=== PATIENT | male | born 1980 | race Caucasian/White ===

== ENCOUNTER 2020-05-15 11:32 | Inpatient (IN) ==
[2020-05-15] MEDS ORDERED: KETOROLAC 30 MG/ML VIAL IV STA (11:49)
--- NOTE | 2020-05-15 11:55 | Emergency Department Note ---
Impression & Plan Pneumothorax, Chest pain ED Provider Note NAME: ELIO [id number] OLGA AGE: 40 SEX: M : 1980 ARRIVES VIA: Walk-In INFORMANT: Patient, ED PROVIDER(S): Johan Bledsoe MD Chief Complaint: Chest pain, shortness of breath HPI: Patient states that his chest pain and shortness of breath began Saturday. The patient does describe it as right-sided. Patient does have a prior history of spontaneous pneumothoraces where the patient did require chest tube placement approximate 6 weeks prior at [place]. The patient denies any recent assaults. The patient believes he may have had a coughing fit on Saturday which may have caused his symptoms. The patient has not taken anything for pain prior to arrival. It is somewhat worse with inspiration. The patient has no prior history of DVT or PE. Patient has no history of heart disease. The patient denies any alcohol or tobacco use. Patient is a former smoker. Patient denies any alcohol or drug use. The patient denies a history of assaults as an inmate. Patient has been incarcerated at [facility] for 5 and half years. ROS: See HPI for pertinent positives and negatives. A total of 10 systems were reviewed and otherwise negative. Past medical history: See below Surgical history: See below Social history: See below Physical Exam: GENERAL: Wearing glasses and a mask. NAD, non-toxic. EYE EXAM: Normal conjunctiva. PERRL, no anisocoria and EOM's grossly intact w/o pain. NECK: Supple, no nuchal rigidity, no adenopathy, non-tender. No signs of m eningismus. LUNGS: Diminished breath sounds over the posterior right chest, no obvious wheezing or rhonchi. HEART: NSR, no MRG. ABDOMEN: Abdomen soft, non-tender, normo-active bowel sounds, no masses, no rebound or guarding. BACK: No CVA TTP. SKIN: No rashes and no bruising. UPPER EXTREMITIES: Upper extremities are grossly normal. LOWER EXTREMITIES: Grossly normal, no edema. Negative Homans' sign bilaterally. NEURO EXAM: A&O x3, cranial nerves II-XII grossly intact, normal speech, moves all 4 extremities on command w/o issue. Differential diagnoses: Reactive airway disease, pneumonia, pneumothorax, COPD, CHF, infections, cardiac ischemia, pulmonary embolism, musculoskeletal, gastrointestinal, as well as other pathologies. Course: Patient was seen and evaluated the bedside. Full history physical exam was performed. EKG: Indication: Shortness of breath, chest pain Normal sinus rhythm, rate of 60, normal intervals, normal axis, no ST changes or T WI. Imaging Studies: Radiology results as stated below per my review in the radiologist's interpretation: XR chest 1V portable HISTORY: 40 years-old Male Chest Pain, h/o spont pnx R side diminished acute atypical chest pain. Follow-up study in a patient with pneumothorax COMPARISON: Chest radiograph 04/05/2020 TECHNIQUE: Portable AP view of the chest FINDINGS: Cardiac silhouette is normal. Interstitial coarsening with suggested emphysema. Biapical bulla are redemonstrated. Lateral right lung base pneumothorax, pleural separation of 5.2 cm. The previously noted apical portion of the pneumothorax is not appreciated. Partial collapse of the medial right lung base. No overt pulmonary edema. Bones of the chest appear grossly intact. IMPRESSION: Moderate right basilar pneumothorax. ACT 112: Negative or not required by law. The above report was generated using voice recognition software. It may contain grammatical, syntax or spelling errors. Electronically signed by: Shadi Espinosa M.D. 05/15/2020 12:08 PM Dictated: 05/15/20 1205 Transcribed: 05/15/[address] chest wo con CT DOSE: 287.00 mGy.cm CLINICAL HISTORY: 40 years-old Male with eval pnx. Follow-up study in a patient with right basilar pneumothorax TECHNIQUE: Multiaxial CT images of the chest were performed without contrast. A dose lowering technique was utilized adhering to the principles of ALARA. COMPARISON: Chest radiograph 05/15/2020 FINDINGS: Unremarkable thyroid. No adenopathy. Trace pericardial effusion. Heart appears normal. No thoracic aortic aneurysm. Small amount of layering pleural fluid level of the right lung base. There is severe bullous upper lung zone prominent centrilobular emphysema. Surgical suture material about the bilateral lung apices. 4 mm fissural nodule of the left midlung. There is a large basilar predominant right-sided pneumothorax with partial right lung collapse. Central airways appear patent. Expansion of the right hemithorax. There is mild leftward midline shift. Mild nonspecific distal esophageal wall thickening. Unremarkable soft tissues. The bones appear intact. No acute fracture. IMPRESSION: 1. Right-sided hydropneumothorax with small amount of layering fluid and large amount of air within the pleural space. This results in expansion of the right hemithorax with mild leftward midline shift, possibly representing developing tension component. 2. Severe emphysema with marked upper lung zone predominant bullous changes. 3. Prior resection changes of the bilateral lung apices. ACT 112: Negative or not required by law. Electronically signed by: Shadi Espinosa M.D. 05/15/2020 2:40 PM Dictated: 05/15/20 1433 Transcribed: 05/15/20 1433 XR chest 1V portable HISTORY: 40 years-old Male repeat for pnx follow-up study in a patient with pneumothorax COMPARISON: Chest CT and chest radiograph studies of same day TECHNIQUE: Portable AP view of the chest FINDINGS: Can't mediastinal and hilar silhouettes are within normal limits. Bones appear grossly intact. Severe bullous emphysema with chronic interstitial coarsening. Chronic resection changes of the bilateral lung apices. There is decreased size of the moderate moderate right-sided pneumothorax, pleural separation at the level of the right lung base now measuring 3.2 cm, previously 5.2. There is no midline shift. Trace amount of right lung base pleural fluid. Mildly improved aeration of the right lung base. IMPRESSION: Moderate right pneumothorax has decreased in size and there is mildly improved aeration of the right lung base. Additionally, there is a decreased amount of leftward midline shift and right hemithorax hyperexpansion. ACT 112: Negative or not required by law. The above report was generated using voice recognition software. It may contain grammatical, syntax or spelling errors. Electronically signed by: Shadi Espinosa M.D. 05/15/2020 3:44 PM Dictated: 05/15/20 1542 Transcribed: 05/15/20 1542 Cardiac monitoring: An order was placed for continuous cardiac monitoring. The monitor shows a rate of 71 with sinus rhythm. MDM: Patient did present with concern for chest pain and shortness of breath with a history of spontaneous pneumothoraces in the past. Patient did have blood work completed along with an EKG, troponin, and chest x-ray. The patient was ordered pain medication as well. Patient does have a right-sided basilar pneumothorax given given his prior history of thoracic surgery and location did not feel that it would be appropriate to place a chest tube at this time given that he does not have a diffuse pneumothorax and concern for possible injury in healthy lung tissue or organs in the upper abdomen. I did initially speak with the on-call hospitalist Dr. Mai who kindly accepted the patient. I also did speak with the primary thoracic surgeon Dr. Liz who had performed the patient's pleurodesis. Given the current management he did recommend some oxygen therapy but not to over and oxygenate given the patient's COPD history. He stated that he would recommend getting a CT of the chest and to evaluate the possibility for transfer at a later date as [facility] currently has so many bed holds that they would not be able to have the patient transferred for an inpatient bed today. Dr. Liz cell phone is at [phone] and did want to be contacted with the CT results if possible. I did speak with Dr. Janeth MD about the possibility of admission given the patient's pneumothorax. He did review the CT results and was concerned about the pneumothorax. Patient CT did show concerning signs for pneumothorax. A repeat chest film was obtained which actually does show improvement. Given the improvement in the patient's chest x-ray with minimal oxygen therapy and the fact that he has a pleurodesis I did speak with the on-call heel sorter Dr. Mcnamara. He is currently in agreement with therapy and recommended some oxygen therapy and obtaining a blood gas and will determine the patient's baseline CO2 status. I did rediscuss that Dr. Mcnamara was comfortable with admitting the patient after reviewing his chest x-ray and CT scans. He also did state that the likelihood of a complete pneumothorax given the history of pleurodesis is very unlikely. The patient was admitted to medicine service under Dr. Fowler with pulmonary c onsult. Critical Care: I have personally spent 120 minutes of critical care time in direct management of this patient. This includes bedside care, interpretation of diagnostic studies, and testing, discussion with consultants, patient, and family members, and other require inpatient management activities. This 120 minutes is in excess of all separately billable procedures. Past Med/Surg History Medical History (Updated 05/15/20 @ 16:52 by Maikol Fowler MD) Anxiety disorder Bipolar 2 disorder Constipation Gastroesophageal reflux HCV (hepatitis C virus) History of migraine History of pneumothorax Thoracostomy tube in place Social History (Updated 05/15/20 @ 11:54 by Johan Bledsoe MD) Smoking Status: Former smoker Tobacco Type: E-cigarettes / Vaping Hx Alcohol Use: No Hx Substance Use: No Feels Safe at Home: Yes Allergies Allergies Allergy/AdvReac Type Severity Reaction Status Date / Time citalopram [From Celexa] AdvReac Unknown Unknown Unverified 05/15/20 12:18 tramadol AdvReac Unknown Unknown Unverified 04/05/20 05:13 Home Meds Home Medications Medication Instructions Recorded Confirmed ciclesonide [Alvesco] 1 puff INHALATION BID 03/15/20 05/15/20 finasteride 5 mg PO QAM 03/15/20 05/15/20 levalbuterol tartrate [Xopenex HFA] 2 inh INHALATION QID PRN 03/15/20 05/15/20 lithium carbonate 1,200 mg PO HS 03/15/20 05/15/20 topiramate 25 mg PO HS 03/15/20 05/15/20 trazodone 100 mg PO HS 03/15/20 05/15/20 Results & Data (ED) Vital Signs Vital Signs - 24 hr 05/15/20 11:36 05/15/20 11:44 05/15/20 11:46 Temperature 37.1 C Temperature Source Oral Pulse Rate 71 59 L 66 Pulse Rate from SpO2 Sensor 59 L 65 Pulse Rhythm Regular Pulse Strength Normal Respiratory Rate 20 Respiratory Effort / Characteristics Non-Labored Spontaneous Respiratory Depth Normal Respiratory Pattern Regular Blood Pressure 167/109 H 171/116 H Blood Pressure Mean 128 132 Blood Pressure Position Sitting Pulse Oximetry 96 97 98 Oxygen Delivery Method Room Air Oxygen Flow Rate Sepsis Recent Fever Within 48 Hours No Sepsis New/Unexplained Change in Mental Status N/A Sepsis Action Taken by Nursing No Action Required Oxygen Flow Rate - Titration Pulse Oximetry Post Tiitration 05/15/20 11:47 05/15/20 11:50 05/15/20 12:00 Temperature Temperature Source Pulse Rate 71 62 Pulse Rate from SpO2 Sensor 70 64 Pulse Rhythm Pulse Strength Respiratory Rate Respiratory Effort / Characteristics Non-Labored Respiratory Depth Respiratory Pattern Blood Pressure 155/103 H Blood Pressure Mean 122 Blood Pressure Position Pulse Oximetry 96 95 Oxygen Delivery Method Oxygen Flow Rate Sepsis Recent Fever Within 48 Hours Sepsis New/Unexplained Change in Mental Status Sepsis Action Taken by Nursing Oxygen Flow Rate - Titration Pulse Oximetry Post Tiitration 05/15/20 12:01 05/15/20 12:10 05/15/20 12:20 Temperature Temperature Source Pulse Rate 66 59 L 70 Pulse Rate from SpO2 Sensor 66 57 L 72 Pulse Rhythm Pulse Strength Respiratory Rate Respiratory Effort / Characteristics Respiratory Depth Respiratory Pattern Blood Pressure Blood Pressure Mean Blood Pressure Position Pulse Oximetry 95 96 97 Oxygen Delivery Method Oxygen Flow Rate Sepsis Recent Fever Within 48 Hours Sepsis New/Unexplained Change in Mental Status Sepsis Action Taken by Nursing Oxygen Flow Rate - Titration Pulse Oximetry Post Tiitration 05/15/20 12:30 05/15/20 12:31 05/15/20 12:40 Temperature Temperature Source Pulse Rate 64 67 67 Pulse Rate from SpO2 Sensor 66 63 68 Pulse Rhythm Pulse Strength Respiratory Rate Respiratory Effort / Characteristics Respiratory Depth Respiratory Pattern Blood Pressure 154/101 H Blood Pressure Mean 120 Blood Pressure Position Pulse Oximetry 98 97 98 Oxygen Delivery Method Oxygen Flow Rate Sepsis Recent Fever Within 48 Hours Sepsis New/Unexplained Change in Mental Status Sepsis Action Taken by Nursing Oxygen Flow Rate - Titration Pulse Oximetry Post Tiitration 05/15/20 12:50 05/15/20 13:00 05/15/20 13:01 Temperature Temperature Source Pulse Rate 69 83 81 Pulse Rate from SpO2 Sensor 71 86 84 Pulse Rhythm Pulse Strength Respiratory Rate Respiratory Effort / Characteristics Respiratory Depth Respiratory Pattern Blood Pressure 172/130 H Blood Pressure Mean 140 Blood Pressure Position Pulse Oximetry 97 95 Oxygen Delivery Method Oxygen Flow Rate Sepsis Recent Fever Within 48 Hours Sepsis New/Unexplained Change in Mental Status Sepsis Action Taken by Nursing Oxygen Flow Rate - Titration Pulse Oximetry Post Tiitration 05/15/20 13:10 05/15/20 13:30 05/15/20 14:21 Temperature Temperature Source Pulse Rate 68 55 L 62 Pulse Rate from SpO2 Sensor 66 56 L 63 Pulse Rhythm Pulse Strength Respiratory Rate 23 Respiratory Effort / Characteristics Respiratory Depth Respiratory Pattern Blood Pressure 148/90 H 143/95 H Blood Pressure Mean 98 103 Blood Pressure Position Pulse Oximetry 97 96 96 Oxygen Delivery Method Oxygen Flow Rate Sepsis Recent Fever Within 48 Hours Sepsis New/Unexplained Change in Mental Status Sepsis Action Taken by Nursing Oxygen Flow Rate - Titration Pulse Oximetry Post Tiitration 05/15/20 14:30 05/15/20 15:00 Temperature Temperature Source Pulse Rate 61 62 Pulse Rate from SpO2 Sensor 63 57 L Pulse Rhythm Pulse Strength Respiratory Rate 16 14 Respiratory Effort / Characteristics Respiratory Depth Respiratory Pattern Blood Pressure 138/89 124/85 Blood Pressure Mean 100 92 Blood Pressure Position Pulse Oximetry 93 95 Oxygen Delivery Method Nasal Cannula Oxygen Flow Rate 2 Sepsis Recent Fever Within 48 Hours Sepsis New/Unexplained Change in Mental Status Sepsis Action Taken by Nursing Oxygen Flow Rate - Titration 2 Pulse Oximetry Post Tiitration 96 Home Medications Current Medication List: was personally reviewed by me Laboratory Data Attestation: I reviewed the patient's lab results. Result diagrams: 05/15/20 11:53 05/15/20 11:53 Lab Results 05/15/20 05/15/20 05/15/20 Range/Units 11:53 11:53 11:53 WBC 8.37 (4.8-10.8) K/uL RBC 4.51 L (4.7-6.1) M/uL Hgb 14.0 (14.0-18.0) g/dL Hct 43.1 (42-52) % MCV 95.6 (80-100) fL MCH 31.0 (25-34) pg MCHC 32.5 (32-36) g/dL RDW Std Deviation 46.8 H (36.4-46.3) fL RDW Coeff of Chang 13.5 (11.5-14.5) % Plt Count 278 (130-400) K/uL MPV 10.7 H (7.4-10.4) fL Immature Gran % (Auto) 0.2 % Neut % (Auto) 58.0 % Lymph % (Auto) 29.6 % Falls % (Auto) 7.8 % Eos % (Auto) 4.2 % Baso % (Auto) 0.2 % Neut # (Auto) 4.85 (1.4-6.5) K/uL Lymph # (Auto) 2.48 (1.2-3.4) K/uL Falls # (Auto) 0.65 H (0.11-0.59) K/uL Eos # (Auto) 0.35 (0-0.5) K/uL Baso # (Auto) 0.02 (0-0.2) K/uL Immature Gran # (Auto) 0.02 (0.00-0.02) K/uL PT 11.4 (9.0-12.0) Seconds INR 1.1 (0.9-1.1) APTT 27.9 (21.0-31.0) Seconds PTT Ratio 1.0 ABG pH (7.35-7.45) ABG pCO2 (35-46) mmHg ABG pO2 (80-95) mmHg ABG HCO3 (19-24) mmol/L ABG O2 Saturation (90-95) % ABG Base Excess (-9-1.8) mEq/L Octavio Test (Pos) VBG pH (7.36-7.41) VBG pCO2 (38-50) mmHg VBG pO2 mmHg VBG HCO3 mmol/L VBG O2 Saturation % VBG Base Excess mEq/L Barometric Pressure mm/Hg Oxygen Given Sodium 139 (136-145) mmol/L Potassium 4.0 (3.5-5.1) mmol/L Chloride 109 H (98-107) mmol/L Carbon Dioxide 26 (21-32) mmol/L Anion Gap 5.0 (3-11) BUN 9 (7-18) mg/dl Creatinine 1.15 (0.6-1.4) mg/dl Est Cr Clr Drug Dosing 88.8 ml/min Est GFR ( Amer) 90.5 Est GFR (Non-Af Amer) 78.1 BUN/Creatinine Ratio 8.2 L (10-20) Glucose 81 (70-99) mg/dl Calcium 9.8 (8.5-10.1) mg/dl Total Bilirubin 0.3 (0.2-1) mg/dl AST 10 L (15-37) U/L ALT 14 (12-78) U/L Alkaline Phosphatase 82 (45-117) U/L Troponin I < 0.015 (0-0.045) ng/ml Total Protein 8.1 (6.4-8.2) gm/dl Albumin 4.3 (3.4-5.0) gm/dl Globulin 3.8 (2.5-4.0) gm/dl Albumin/Globulin Ratio 1.1 (0.9-2) Lipase 316 (73-393) U/L 05/15/20 05/15/20 Range/Units 16:22 16:33 WBC (4.8-10.8) K/uL RBC (4.7-6.1) M/uL Hgb (14.0-18.0) g/dL Hct (42-52) % MCV (80-100) fL MCH (25-34) pg MCHC (32-36) g/dL RDW Std Deviation (36.4-46.3) fL RDW Coeff of Chang (11.5-14.5) % Plt Count (130-400) K/uL MPV (7.4-10.4) fL Immature Gran % (Auto) % Neut % (Auto) % Lymph % (Auto) % Falls % (Auto) % Eos % (Auto) % Baso % (Auto) % Neut # (Auto) (1.4-6.5) K/uL Lymph # (Auto) (1.2-3.4) K/uL Falls # (Auto) (0.11-0.59) K/uL Eos # (Auto) (0-0.5) K/uL Baso # (Auto) (0-0.2) K/uL Immature Gran # (Auto) (0.00-0.02) K/uL PT (9.0-12.0) Seconds INR (0.9-1.1) APTT (21.0-31.0) Seconds PTT Ratio ABG pH 7.41 (7.35-7.45) ABG pCO2 34 L (35-46) mmHg ABG pO2 85 (80-95) mmHg ABG HCO3 21 (19-24) mmol/L ABG O2 Saturation 96.8 H (90-95) % ABG Base Excess -2.7 (-9-1.8) mEq/L Octavio Test Pos (Pos) VBG pH 7.37 (7.36-7.41) VBG pCO2 41 (38-50) mmHg VBG pO2 30 mmHg VBG HCO3 23 mmol/L VBG O2 Saturation < 60.0 % VBG Base Excess -2.1 mEq/L Barometric Pressure 730.0 730.2 mm/Hg Oxygen Given 1.5l Sodium (136-145) mmol/L Potassium (3.5-5.1) mmol/L Chloride (98-107) mmol/L Carbon Dioxide (21-32) mmol/L Anion Gap (3-11) BUN (7-18) mg/dl Creatinine (0.6-1.4) mg/dl Est Cr Clr Drug Dosing ml/min Est GFR ( Amer) Est GFR (Non-Af Amer) BUN/Creatinine Ratio (10-20) Glucose (70-99) mg/dl Calcium (8.5-10.1) mg/dl Total Bilirubin (0.2-1) mg/dl AST (15-37) U/L ALT (12-78) U/L Alkaline Phosphatase (45-117) U/L Troponin I (0-0.045) ng/ml Total Protein (6.4-8.2) gm/dl Albumin (3.4-5.0) gm/dl Globulin (2.5-4.0) gm/dl Albumin/Globulin Ratio (0.9-2) Lipase (73-393) U/L Administered Medications Fentanyl Citrate (Fentanyl Citrate 100 Mcg/2 Ml Vial) 50 mcg IV Q2H PRN PRN Reason: Pain Stop: 05/29/20 16:18 Last Admin: 05/15/20 16:47 Dose: 50 mcg Documented by: [id number] Discontinued Medications Fentanyl Citrate (Fentanyl Citrate 100 Mcg/2 Ml Vial) 50 mcg IV Q1H DEANNA Stop: 05/29/20 13:59 Last Admin: 05/15/20 16:30 Dose: Not Given Documented by: [id number] Admin: 05/15/20 15:00 Dose: Not Given Documented by: [id number] Admin: 05/15/20 14:26 Dose: 50 mcg Documented by: [id number] Sodium Chloride (Nss 1000ml) 1,000 mls @ 999 mls/hr IV .Q1H1M DEANNA Stop: 05/15/20 13:00 Last Infusion: 05/15/20 13:28 Dose: 0 mls/hr Documented by: [id number] Admin: 05/15/20 12:08 Dose: 999 mls/hr Documented by: [id number] Ketorolac Tromethamine (Ketorolac 30 Mg/Ml Vial) 30 mg IV NOW STA Stop: 05/15/20 11:50 Last Admin: 05/15/20 12:08 Dose: 30 mg Documented by: [id number] Discharge Plan Visit Data Chief Complaint: Respiratory Problems Stated Complaint: SPONTANEOUS PNEUMOTHORAX ED Provider: Johan Bledsoe Discharge Problem: Pneumothorax, Chest pain Forms Stand Alone Forms: [facility] [employer] Prescriptions Prescriptions: No Action lithium carbonate 300 mg Tablet Extended Release 1,200 mg PO HS RF: 0 topiramate 25 mg Tablet 25 mg PO HS RF: 0 trazodone 100 mg Tablet 100 mg PO HS RF: 0 finasteride 5 mg Tablet 5 mg PO QAM RF: 0 levalbuterol tartrate [Xopenex HFA] 45 mcg/actuation Hfa Aerosol Inhaler 2 inh INHALATION QID PRN (Reason: Shortness Of Breath) RF: 0 Alvesco 80 mcg/actuation Hfa Aerosol Inhaler 1 puff INHALATION BID RF: 0
[2020-05-15] MEDS ORDERED: SODIUM CHLORIDE 0.9% 1000ML 1,000 ML IV SCH (12:00)
[2020-05-15 12:02] LABS: Basophils # (auto) 0.02 K/uL (0-0.2); Basophils % (auto) 0.2 %; Eosinophils # (auto) 0.35 K/uL (0-0.5); Eosinophils % (auto) 4.2 %; Hematocrit (blood only) 43.1 % (42-52); Immature Granulocytes # (auto) 0.02 K/uL (0.00-0.02); Immature Granulocytes % (auto) 0.2 %; Lymphocytes # (auto) 2.48 K/uL (1.2-3.4); Lymphocytes % (auto) 29.6 %; Mean Corpuscular Hgb Conc 32.5 g/dL (32-36); Mean Corpuscular Volume 95.6 fL (80-100); Mean Platelet Volume 10.7 fL (7.4-10.4); Monocytes # (auto) 0.65 K/uL (0.11-0.59); Monocytes % (auto) 7.8 %; Neutrophils # (auto) 4.85 K/uL (1.4-6.5); Platelet Count 278 K/uL (130-400); RDW Coefficient of Variation 13.5 % (11.5-14.5); RDW Standard Deviation 46.8 fL (36.4-46.3); Red Blood Count 4.51 M/uL (4.7-6.1); White Blood Count 8.37 K/uL (4.8-10.8)
--- NOTE | 2020-05-15 12:09 | XRay Report ---
XR chest 1V portable HISTORY: 40 years-old Male Chest Pain, h/o spont pnx R side diminished acute atypical chest pain. Fo llow-up study in a patient with pneumothorax COMPARISON: Chest radiograph 04/05/2020 TECHNIQUE: Portable AP view of the chest FINDINGS: Cardiac silhouette is normal. Interstitial coarsening with suggested emphysema. Biapical bulla are re demonstrated. Lateral right lung base pneumothorax, pleural separation of 5.2 cm. The previously note d apical portion of the pneumothorax is not appreciated. Partial collapse of the medial right lung ba se. No overt pulmonary edema. Bones of the chest appear grossly intact. IMPRESSION: Moderate right basilar pneumothorax. ACT 112: Negative or not required by law. The above report was generated using voice recognition software. It may contain grammatical, syntax o r spelling errors. Electronically signed by: Shadi Espinosa M.D. 05/15/2020 12:08 PM
[2020-05-15 12:17] LABS: INR 1.1 (0.9-1.1); Partial Thromboplastin Time 27.9 Seconds (21.0-31.0); Prothrombin Time 11.4 Seconds (9.0-12.0)
[2020-05-15 12:22] LABS: Alanine Aminotransferase 14 U/L (12-78); Albumin Level 4.3 gm/dl (3.4-5.0); Aspartate Aminotransferase 10 U/L (15-37); BUN Creatinine Ratio 8.2 (10-20); Blood Urea Nitrogen 9 mg/dl (7-18); Calcium 9.8 mg/dl (8.5-10.1); Carbon Dioxide 26 mmol/L (21-32); Chloride 109 mmol/L (98-107); Creatinine Clr Calc Pharmacy 88.8 ml/min; Est GFR (African American) 90.5; Est GFR (Non-African American) 78.1; Glucose 81 mg/dl (70-99); Lipase 316 U/L (73-393); Sodium 139 mmol/L (136-145)
[2020-05-15 12:27] LABS: Albumin Globulin Ratio 1.1 (0.9-2); Alkaline Phosphatase 82 U/L (45-117); Bilirubin,Total 0.3 mg/dl (0.2-1); Globulin 3.8 gm/dl (2.5-4.0); Total Protein 8.1 gm/dl (6.4-8.2); Troponin I < 0.015 ng/ml (0-0.045)
--- NOTE | 2020-05-15 13:01 | Electrocardiogram Report ---
Test Reason : Blood Pressure : / mmHG Vent. Rate : 060 BPM Atrial Rate : 060 BPM P-R Int : 152 ms QRS Dur : 084 ms QT Int : 432 ms P-R-T Axes : 069 048 058 degrees QTc Int : 432 ms Normal sinus rhythm Normal ECG When compared with ECG of 05-APR-2020 03:56, Vent. rate has decreased BY 38 BPM Confirmed by Manuel Schulte ([id number]) on 05/15/2020 1:00:18 PM Referred By: REFERRED SELF Confirmed By:Manuel Schulte
[2020-05-15] MEDS: fentaNYL citrate 100 MCG/2 ML VIAL IV SCH ×3 (14:26→16:30)
--- NOTE | 2020-05-15 14:42 | CT Scan Report ---
CT chest wo con CT DOSE: 287.00 mGy.cm CLINICAL HISTORY: 40 years-old Male with eval pnx. Follow-up study in a patient with right basilar pneumothorax TECHNIQUE: Multiaxial CT images of the chest were performed without contrast. A dose lowering techni que was utilized adhering to the principles of ALARA. COMPARISON: Chest radiograph 05/15/2020 FINDINGS: Unremarkable thyroid. No adenopathy. Trace pericardial effusion. Heart appears normal. No t horacic aortic aneurysm. Small amount of layering pleural fluid level of the right lung base. There i s severe bullous upper lung zone prominent centrilobular emphysema. Surgical suture material about th e bilateral lung apices. 4 mm fissural nodule of the left midlung. There is a large basilar predomina nt right-sided pneumothorax with partial right lung collapse. Central airways appear patent. Expansio n of the right hemithorax. There is mild leftward midline shift. Mild nonspecific distal esophageal wall thickening. Unremarkable soft tissues. The bones appear intac t. No acute fracture. IMPRESSION: 1. Right-sided hydropneumothorax with small amount of layering fluid and large amount of air within t he pleural space. This results in expansion of the right hemithorax with mild leftward midline shift, possibly representing developing tension component. 2. Severe emphysema with marked upper lung zone predominant bullous changes. 3. Prior resection changes of the bilateral lung apices. ACT 112: Negative or not required by law. Electronically signed by: Shadi Espinosa M.D. 05/15/2020 2:40 PM
[2020-05-15] MEDS ORDERED: LIDOCAINE/EPINEPHRINE 1% 20 ML VIAL INFIL ONE (15:35)
--- NOTE | 2020-05-15 15:46 | XRay Report ---
XR chest 1V portable HISTORY: 40 years-old Male repeat for pnx follow-up study in a patient with pneumothorax COMPARISON: Chest CT and chest radiograph studies of same day TECHNIQUE: Portable AP view of the chest FINDINGS: Can't mediastinal and hilar silhouettes are within normal limits. Bones appear grossly intact. Severe bullous emphysema with chronic interstitial coarsening. Chronic resection changes of the bilateral l abisai apices. There is decreased size of the moderate moderate right-sided pneumothorax, pleural separa tion at the level of the right lung base now measuring 3.2 cm, previously 5.2. There is no midline sh ift. Trace amount of right lung base pleural fluid. Mildly improved aeration of the right lung base. IMPRESSION: Moderate right pneumothorax has decreased in size and there is mildly improved aeration o f the right lung base. Additionally, there is a decreased amount of leftward midline shift and right hemithorax hyperexpansion. ACT 112: Negative or not required by law. The above report was generated using voice recognition software. It may contain grammatical, syntax o r spelling errors. Electronically signed by: Shadi Espinosa M.D. 05/15/2020 3:44 PM
--- NOTE | 2020-05-15 16:25 | Pulmonary Consultation ---
Date of Consultation May 15, 2020 Assessment & Plan (1) Loculated pneumothorax of lateral aspect of right lung: CT chest 05/15/2020 personally reviewed: Severe's centrilobular and paraseptal emphysema, bullous disease appreciated bilaterally, multiple surgical shwetha appreciated in apices of bilateral lungs more on the right side. Right lower loculated hydro-pneumothorax appreciated with minimal mediastinal shift. No mediastinal lymphadenopathy. Patient had a chest x-ray done an hour after the CT chest. And there is significant decrease in size of the right lower pneumothorax. Patient is only on nasal cannula currently. --Loculated right-sided hydropneumothorax Secondary because of underlying severe bullous disease as well as centrilobular and paraseptal emphysema Patient has had previous bullectomy in the past evident on the CAT scan Dr. Bledsoe from the ED gave me a call regarding patient. Patient is currently on nasal cannula and there is improvement in pneumothorax size. Patient is hemodynamically stable Patient will definitely need CT surgery. [facility] had been contacted by the ED who apparently did previous pleurodesis. They do not have beds right now and liekly will be able to transfer tomorrow. Patient seem to have partial pleurodesis of the right lung leading to loculated pneumothorax of the lower aspect. Likelihood of totally collapsing of the right lung would be unlikely. We will keep the patient 100% nonrebreather to see if we can decrease the size of pneumothorax. Patient does have severe COPD and chronic hypercapnia will be kept in mind while using the nonrebreather. --Severe COPD with emphysema Continue with Anoro and Arnuity. Trelegy inhaler as an outpatient. Alpha-1 antitrypsin deficiency if never done in the past should be thought of given the patient is only 40 years old Plan: ABG 7.41/ on 1.5 L Keep patient on 40-50% FiO2. Antitussive medications. try to minimize any maneuvers which would increase intrathoracic pressure. Avoid positive pressure ventilation including high flow and BiPAP Serial chest x-rays If there is any clinical worsening in symptoms or signs of pneumothorax , will need chest tube placed in. Please note the above document was generated using voice recognition software. It may contain grammatical, syntax or spelling errors.Any formal questions or concerns about the content, text or information contained within the body of this dictation should be directly addressed to the provider for clarification. (2) COPD with emphysema: (3) Lung bullae: History of Present Illness History of Present Illness 40-year-old prisoner with history of COPD, multiple episodes of spontaneous pneumothoraces in the past. He was recently at [facility] and of March-early April for which he had right thoracotomy and bullectomy along with pleurodesis. Patient has had a total of 3 spontaneous pneumothoraces on the right side. And 1 spontaneous pneumothorax on the left side which was in 2007 s/p surgery. Patient presented to the ED with complaints of sharp right-sided chest pain and progressive worsening of shortness of breath. This has been going on since 1 to 2 days. Denies any history of trauma. No hemoptysis. No fever or chills. No nausea or vomiting. No dizziness, no headache. No dysuria or diarrhea. Denies any headache. Social history: 40 pack years. Has been doing e-cigarettes. Patient has been heroin, marijuana as well as cocaine snorting in the past on asking if he has anything else he said he has been everything possible. Quit everything in February 2000 Allergies Allergy/AdvReac Type Severity Reaction Status Date / Time citalopram [From Celexa] AdvReac Unknown Unknown Unverified 05/15/20 12:18 tramadol AdvReac Unknown Unknown Unverified 04/05/20 05:13 Home Medications Home Medications Medication Instructions Recorded Confirmed Type ciclesonide [Alvesco] 1 puff INHALATION BID 03/15/20 05/15/20 History finasteride 5 mg PO QAM 03/15/20 05/15/20 History levalbuterol tartrate [Xopenex HFA] 2 inh INHALATION QID PRN 03/15/20 05/15/20 History lithium carbonate 1,200 mg PO HS 03/15/20 05/15/20 History topiramate 25 mg PO HS 03/15/20 05/15/20 History trazodone 100 mg PO HS 03/15/20 05/15/20 History Patient History Medical History (Updated 05/16/20 @ 07:35 by Maikol Fowler MD) Anxiety disorder Bipolar 2 disorder Constipation Gastroesophageal reflux HCV (hepatitis C virus) History of migraine History of pneumothorax Thoracostomy tube in place Surgical History (Updated 05/15/20 @ 17:48 by Maikol Fowler MD) History of pneumonectomy 04/11/2020 right thoracotomy, bullaectomy and pleurodesis ([facility]) Social History (Updated 05/15/20 @ 17:49 by Maikol Fowler MD) Smoking Status: Unknown if ever smoked Tobacco Type: E-cigarettes / Vaping Age Quit Using Tobacco: 39; packs per day: 1.5; Years Smoked: 20; Hx Alcohol Use: No Hx Substance Use: No Preferred Language: Stateless Communication Ability: Effective Orchestra Director Required: No Beliefs That Will Affect Care: None Current Living Situation: Other Current Living Situation Comment: inmate Other Information That Helps Us Care for You: No Feels Safe at Home: Yes Safety Concerns: Feels Safe At This Time Assistive Devices: None Review of Systems Review of Systems: All systems reviewed & are unremarkable except as noted in HPI & below Physical Exam Physical Exam: Constitutional: No acute distress HEENT: EOMI, PERRLA Respiratory system: Decreased air entry bilaterally, no wheeze, no rhonchi, mild crackles left lower lobe, surgical scar appreciated on the lateral aspect of the right chest CVS: S1-S2 positive, no murmurs or gallops Abdomen: Soft, nontender, nondistended, positive bowel sounds x4 Extremities: +2 pulses bilaterally radialis/ dorsalis pedis, no cyanosis, no edema Neuro: Awake alert oriented x3 Psych: Normal mood and affect G/U: No Santizo Skin: no rashes, warm and dry Lymphatic: no cervical or axillary lymphadenopathy Results & Data Results & Data ([facility]) Vital Signs (Past 12 Hours) Vital Signs Temp Pulse Resp BP Pulse Ox 05/15/20 15:00 62 14 124/85 95 05/15/20 14:30 61 16 138/89 93 05/15/20 14:21 62 23 143/95 H 96 05/15/20 13:30 55 L 148/90 H 96 05/15/20 13:10 68 97 05/15/20 13:01 81 05/15/20 13:00 83 172/130 H 95 05/15/20 12:50 69 97 05/15/20 12:40 67 98 05/15/20 12:31 67 97 05/15/20 12:30 64 154/101 H 98 05/15/20 12:20 70 97 05/15/20 12:10 59 L 96 05/15/20 12:01 66 95 05/15/20 12:00 62 155/103 H 95 05/15/20 11:50 71 96 05/15/20 11:46 66 98 05/15/20 11:44 59 L 171/116 H 97 05/15/20 11:36 37.1 C 71 20 167/109 H 96 05/15/20 11:53 05/15/20 11:53 PG Care Time/CCT Total # of Minutes Spent Total Time Spent with Patient: Total time spent is greater than 50% in coordination of care (as documented) at patient's floor/unit and/or counseling patient: Coding Level of Care Code 46192 Initial Inpt Care Lvl 3 Diagnoses Loculated pneumothorax of lateral aspect of right lung J93.83 COPD with emphysema J43.9 Lung bullae J43.9
--- NOTE | 2020-05-15 16:26 | History & Physical Report ---
Date of Service May 15, 2020 Assessment & Plan (1) Loculated pneumothorax of lateral aspect of right lung: ER physician discussed with Dr Liz [facility] who will review images and will need to be contacted tomorrow for possible transfer to [facility]. CXR fortunately spontaneously shows improvement. ABG with no CO2 retention. Start patient on 100% Non-rebreather. (2) Lung bullae: Definitive treatment with thoracic surgery. (3) COPD with emphysema: Severe emphysema noted on CT. Only taking Alvesco 1 puff twice daily prior to admission. Will switch to LAMA/LABA/ICS for ongoing treatment. Will need follow up with pulmonology as outpatient - previous alpha-1 antitrypsin testing performed at [facility] - 76 mg/dL (just below normal range. (4) History of migraine: Continue topiramate 25mg PO HS (5) Bipolar 2 disorder: Continue lithium 1200mg PO HS, level with AM labs. Trazodone 100mg PO HS Admission and Anticipated Discharge Date Admission Date: 05/15/2020 History of Present Illness Primary Care Provider: [facility] Enma Toussaint is a 40 year old male with recurrent spontaneous pneumothoraces who presents to the ER from [facility] due to sudden onset right sided chest pain and progressive worsening shortness of breath that started 2 days ago while coughing. He reports initially hearing a pop in his right lung with a sharp pleuritic chest pain. Severity 9/10 at worst, currently 6/10. Denies any trauma. Patient felt no surgical emphysema. No breath sounds could be heard on the right side by the [facility] healthcare provider today but was sent to the ER for further evaluation to assess for pneumothorax. The patient denies any further coughing, hemoptysis, fever, chills, nausea, vomiting, palpitations, diaphoresis, nasal congestion, headache, dizziness, weakness or fatigue. Significant history of recurrent spontaneous pneumothoraces (x3 in the last 2 months), x1 on left 20 years previously: March 15 - large right-sided pneumothorax after straining bowel movement causing collapsed right lung with chest tube placed in ER. Transferred to [facility] 03/15-03/20. Chest tube removed 03/[address] surgery follow up. April 05 - right sided pneumothorax associated with coughing episode with chest tube placed. [facility] 04/05/-04/16, 04/11 -right thoracotomy bullaectomy and pleurodesis. Right basal segment bronchial lavage showed numerous pulmonary macrophages, respiratory epithelium, mucoid exudate and many acute inflammatory cells. No evidence malignancy. 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 Todays episode as above He reports never being seen by special investigation unit investigator outside of a hospital setting however initially [facility] visit did note "complete pulmonary workup". Most recently he was admitted at [facility] from April 05 to April 16, 2020 for similar presentation. On that admission he underwent paracentesis. Chest tube was removed on 04/14 and follow-up chest x-ray the following day showed no pneumothorax at that time. The patient is a former smoker. Quit February 2019. 1-2 packs/day for 20 years. i e. 30 pack-year history. Since July he has been smoking e-cigarettes in the [facility] but quit after his first pneumothorax at the beginning of March. In the ER chest x-ray showed right basilar pneumothorax. ER physician Dr. Bledsoe discussed with his thoracic surgeon at [facility] (Dr Liz) who would have excepted him at [facility] however there are no beds currently available. Requested CT without contrast and he will review images tomorrow for ongoing advice. Case discussed with Dr. Mcnamara by myself and Dr Bledsoe and after repeat CXR showed significant improvement on 2L O2 only the patient will be admitted here to PCU. No need for emergent chest tube at the current time as he appears to be improving. Allergies Allergy/AdvReac Type Severity Reaction Status Date / Time citalopram [From Celexa] AdvReac Unknown Unknown Unverified 05/15/20 12:18 tramadol AdvReac Unknown Unknown Unverified 04/05/20 05:13 Home Medications Home Medications Medication Instructions Recorded Confirmed Type ciclesonide [Alvesco] 1 puff INHALATION BID 03/15/20 05/15/20 History finasteride 5 mg PO QAM 03/15/20 05/15/20 History levalbuterol tartrate [Xopenex HFA] 2 inh INHALATION QID PRN 03/15/20 05/15/20 History lithium carbonate 1,200 mg PO HS 03/15/20 05/15/20 History topiramate 25 mg PO HS 03/15/20 05/15/20 History trazodone 100 mg PO HS 03/15/20 05/15/20 History Past Med/Surg History Medical History (Updated 05/16/20 @ 07:35 by Maikol Fowler MD) Anxiety disorder Bipolar 2 disorder Constipation Gastroesophageal reflux HCV (hepatitis C virus) History of migraine History of pneumothorax Thoracostomy tube in place Surgical History (Updated 05/15/20 @ 17:48 by Maikol Fowler MD) History of pneumonectomy 04/11/2020 right thoracotomy, bullaectomy and pleurodesis ([facility]) Social History (Updated 05/15/20 @ 17:49 by Maikol Fowler MD) Smoking Status: Unknown if ever smoked Tobacco Type: E-cigarettes / Vaping Age Quit Using Tobacco: 39; packs per day: 1.5; Years Smoked: 20; Hx Alcohol Use: No Hx Substance Use: No Preferred Language: Nicaraguan Communication Ability: Effective Screwdown Operator Required: No Beliefs That Will Affect Care: None Current Living Situation: Other Current Living Situation Comment: inmate Other Information That Helps Us Care for You: No Feels Safe at Home: Yes Safety Concerns: Feels Safe At This Time Assistive Devices: Oxygen - Continuous Review of Systems Review of Systems: All systems reviewed & are unremarkable except as noted in HPI & below Physical Exam Constitutional: well developed and well nourished; no acute distress Eyes: + anicteric sclerae; normal pupil size ENMT: external ear and nose normal, oropharynx normal Respiratory: normal respiratory effort and able to speak in complete sentences; no respiratory distress, no labored breathing, no retractions, does not use accessory muscles and no cough Auscultation: + breath sounds absent (Right lateral wall) and + crackles (few around absent area); no wheezes Cardiovascular: Rate/Rhythm: regular rate and regular rhythm Heart Sounds: no murmur Chest (Breasts): Chest: normal inspection of chest (Scarring well healed from prior chest tubes and bullaectomy, no surgical em) Gastrointestinal (Abdomen): normal bowel sounds, soft, nontender, no hepatosplenomegaly Musculoskeletal: no cyanosis or clubbing, extremities motor strength 5/5 Skin: no rashes, warm and dry Neurologic: moves all extremities and awake; not confused Psychiatric: A+Ox3, euthymic affect Genitourinary: no CVA tenderness Results & Data Results & Data ([facility]) Vital Signs (Past 12 Hours) Vital Signs Temp Pulse Resp BP Pulse Ox 05/15/20 15:00 62 14 124/85 95 05/15/20 14:30 61 16 138/89 93 05/15/20 14:21 62 23 143/95 H 96 05/15/20 13:30 55 L 148/90 H 96 05/15/20 13:10 68 97 05/15/20 13:01 81 05/15/20 13:00 83 172/130 H 95 05/15/20 12:50 69 97 05/15/20 12:40 67 98 05/15/20 12:31 67 97 05/15/20 12:30 64 154/101 H 98 05/15/20 12:20 70 97 05/15/20 12:10 59 L 96 05/15/20 12:01 66 95 05/15/20 12:00 62 155/103 H 95 05/15/20 11:50 71 96 05/15/20 11:46 66 98 05/15/20 11:44 59 L 171/116 H 97 05/15/20 11:36 37.1 C 71 20 167/109 H 96 Diagnostic Findings XR chest 1V portable IMPRESSION: Moderate right basilar pneumothorax. CT chest wo con IMPRESSION: 1. Right-sided hydropneumothorax with small amount of layering fluid and large amount of air within the pleural space. This results in expansion of the right hemithorax with mild leftward midline shift, possibly representing developing tension component. 2. Severe emphysema with marked upper lung zone predominant bullous changes. 3. Prior resection changes of the bilateral lung apices. ECG Indication: SOB/dyspnea Rate (beats per minute): 60 Rhythm: normal sinus Findings: no acute ischemic change Comparison ECG Date: from (April 05, 2020) Change: no significant change Code Status & VTE Plan Code Status Full VTE Prophylaxis Plan VTE Prophylaxis will be ordered: No PG Care Time/CCT Total # of Minutes Spent Total Time Spent with Patient: Total time spent is greater than 50% in coordination of care (as documented) at patient's floor/unit and/or counseling patient: Coding Level of Care Code 97228 Initial Inpt Care Lvl 3 Diagnoses Loculated pneumothorax of lateral aspect of right lung J93.83 Lung bullae J43.9 COPD with emphysema J43.9 History of migraine Z86.69 Bipolar 2 disorder F31.81
[2020-05-15 16:34] LABS: Base Excess VBG -2.1 mEq/L; HCO3 VBG 23 mmol/L; Oxygen Saturation VBG < 60.0 %; PCO2 VBG 41 mmHg (38-50); PO2 VBG 30 mmHg; pH VBG 7.37 (7.36-7.41)
[2020-05-15 16:44] LABS: Base Excess ABG -2.7 mEq/L (-9-1.8); HCO3 ABG 21 mmol/L (19-24); Oxygen Saturation ABG 96.8 % (90-95); PCO2 ABG 34 mmHg (35-46); PO2 ABG 85 mmHg (80-95); pH ABG 7.41 (7.35-7.45)
[2020-05-15 16:45] LABS: Allen Test Pos (Pos)
[2020-05-15] MEDS: fentaNYL citrate 100 MCG/2 ML VIAL IV PRN ×3 (16:47→21:26)
--- NOTE | 2020-05-15 16:51 | XRay Report ---
XR chest 1V portable HISTORY: 40 years-old Male f/u Pneumo follow-up study in a patient with pneumothorax COMPARISON: Chest radiograph of same day at 3:33 PM, chest CT of same day. TECHNIQUE: Portable AP view of the chest FINDINGS: The cardiomediastinal and hilar silhouettes are within normal limits. Bones appear grossly intact. Se jun bullous emphysema with chronic interstitial coarsening. Chronic resection changes of the bilater al lung apices. No midline shift. Right basilar pneumothorax is unchanged from comparison, pleural se paration of 3.2 cm. Trace right lung base pleural fluid is better seen on comparison chest CT. IMPRESSION: Unchanged right basilar pneumothorax. ACT 112: Negative or not required by law. The above report was generated using voice recognition software. It may contain grammatical, syntax o r spelling errors. Electronically signed by: Shadi Espinosa M.D. 05/15/2020 4:50 PM
[2020-05-15] MEDS: UMECLIDINIUM/VILANTEROL 62.5/25MCG 7 PUFFS/INHALER INH SCH (20:05)
[2020-05-15] MEDS: TOPIRAMATE 25 MG TAB PO SCH (20:56)
[2020-05-15] MEDS: traZODone HCL 100 MG TAB PO SCH (20:57)
[2020-05-15] MEDS: LITHIUM CARBONATE SLOW REL 300 MG TAB PO SCH (20:57)
[2020-05-16] MEDS: fentaNYL citrate 100 MCG/2 ML VIAL IV PRN ×7 (00:54→20:26)
[2020-05-16 07:41] LABS: Basophils # (auto) 0.02 K/uL (0-0.2); Basophils % (auto) 0.2 %; Eosinophils # (auto) 0.39 K/uL (0-0.5); Eosinophils % (auto) 4.8 %; Hematocrit (blood only) 40.5 % (42-52); Hemoglobin 13.1 g/dL (14.0-18.0); Immature Granulocytes # (auto) 0.02 K/uL (0.00-0.02); Immature Granulocytes % (auto) 0.2 %; Lymphocytes # (auto) 2.08 K/uL (1.2-3.4); Lymphocytes % (auto) 25.6 %; Mean Corpuscular Hemoglobin 30.5 pg (25-34); Mean Corpuscular Hgb Conc 32.3 g/dL (32-36); Mean Corpuscular Volume 94.4 fL (80-100); Mean Platelet Volume 10.4 fL (7.4-10.4); Monocytes # (auto) 0.65 K/uL (0.11-0.59); Neutrophils # (auto) 4.95 K/uL (1.4-6.5); Neutrophils % (auto) 61.2 %; Platelet Count 238 K/uL (130-400); RDW Coefficient of Variation 13.3 % (11.5-14.5); Red Blood Count 4.29 M/uL (4.7-6.1); White Blood Count 8.11 K/uL (4.8-10.8)
[2020-05-16] MEDS: FLUTICASONE FUROATE 100MCG 14 PUFFS/INHALER INH SCH (07:51)
[2020-05-16] MEDS: FINASTERIDE 5 MG TAB PO SCH (07:51)
[2020-05-16] MEDS: UMECLIDINIUM/VILANTEROL 62.5/25MCG 7 PUFFS/INHALER INH SCH (07:51)
--- NOTE | 2020-05-16 08:23 | XRay Report ---
XR chest 1V portable HISTORY: 40 years-old Male f/u pneumo follow up study in a patient with pneumothorax COMPARISON: Chest radiograph 05/15/2020 at 4:39 PM TECHNIQUE: Portable AP view of the chest FINDINGS: Cardiomediastinal and hilar silhouettes are within normal limits. Unchanged right-sided pneumothorax with lateral basilar component measuring 3.1 cm. Severe bullous emphysema with chronic interstitial c oarsening. Postoperative changes of the lung apices. Bones appear grossly intact. IMPRESSION: Unchanged moderate right pneumothorax. ACT 112: Negative or not required by law. The above report was generated using voice recognition software. It may contain grammatical, syntax o r spelling errors. Electronically signed by: Shadi Espinosa M.D. 05/16/2020 8:22 AM
[2020-05-16 08:27] LABS: BUN Creatinine Ratio 10.4 (10-20); Creatinine Clr Calc Pharmacy 103.8 ml/min; Est GFR (African American) 111.1; Est GFR (Non-African American) 95.9
[2020-05-16] MEDS ORDERED: FLUTICASONE FUROATE 100MCG 14 PUFFS/INHALER INH SCH (09:00)
[2020-05-16] MEDS: BENZONATATE 100 MG CAPSULE PO SCH ×3 (10:08→21:19)
--- NOTE | 2020-05-16 11:46 | Pulmonology Progress Note ---
Date of Service May 16, 2020 Assessment & Plan (1) Loculated pneumothorax of lateral aspect of right lung: CT chest 05/15/2020 personally reviewed: Severe's centrilobular and paraseptal em physema, bullous disease appreciated bilaterally, multiple surgical shwetha appreciated in apices of bilateral lungs more on the right side. Right lower loculated hydro-pneumothorax appreciated with minimal mediastinal shift. No mediastinal lymphadenopathy. Patient had a chest x-ray done an hour after the CT chest. And there is significant decrease in size of the right lower pneumothorax. Patient is only on nasal cannula currently. --Loculated right-sided hydropneumothorax Secondary because of underlying severe bullous disease as well as centrilobular and paraseptal emphysema Patient has had previous bullectomy in the past evident on the CAT scan Patient seem to have partial pleurodesis of the right lung leading to loculated pneumothorax of the lower aspect. Likelihood of totally collapsing of the right lung would be unlikely. We will keep the patient 100% nonrebreather to see if we can decrease the size of pneumothorax. Patient does have severe COPD and chronic hypercapnia will be kept in mind while using the nonrebreather. --Severe COPD with emphysema Continue with Anoro and Arnuity Alpha-1 antitrypsin deficiency if never done in the past should be thought of given the patient is only 40 years old Plan: Chest x-ray from today does not show any change in size of the right lower loculated pneumothorax compared to yesterday. Keep patient on nonrebreather.. Antitussive medications. try to minimize any maneuvers which would increase intrathoracic pressure. Avoid positive pressure ventilation including high flow and BiPAP If there is any clinical worsening in symptoms or signs of pneumothorax , will need chest tube placed in. Please note the above document was generated using voice recognition software. It may contain grammatical, syntax or spelling errors.Any formal questions or concerns about the content, text or information contained within the body of this dictation should be directly addressed to the provider for clarification. (2) COPD with emphysema: (3) Lung bullae: Admission and Anticipated Discharge Date Admission Date: May 15, 2020 Subjective Patient seen and examined at bedside. No acute distress, no adverse events overnight. At the time of examination assisted guards were present in the room. Patient still complains of pain on the right side of the chest which is alleviated with pain medications. Denies any significant shortness of breath. No dizziness, no headache, no nausea or vomiting. Review of Systems Review of Systems: All systems reviewed & are unremarkable except as noted in Subjective Physical Exam Physical Exam: Constitutional: No acute distress HEENT: EOMI, PERRLA Respiratory system: Decreased air entry bilaterally, no wheeze, no rhonchi, mild crackles appreciated on the left side, positive lateral chest scar CVS: S1-S2 positive, no murmurs or gallops Abdomen: Soft, nontender, nondistended, positive bowel sounds x4 Extremities: +2 pulses bilaterally radialis/ dorsalis pedis, no cyanosis, no edema, tattoos all over the body Neuro: Awake alert oriented x3 Psych: Normal mood and affect G/U: No Santizo Skin: no rashes, warm and dry Lymphatic: no cervical or axillary lymphadenopathy Results & Data Results & Data ([facility]) Vital Signs (Past 12 Hours) Vital Signs Temp Pulse Resp BP Pulse Ox 05/16/20 11:16 36.6 C 67 18 133/90 99 05/16/20 07:29 36.5 C 65 17 119/89 100 05/16/20 02:38 36.6 C 68 16 137/87 97 05/16/20 07:26 05/16/20 07:26 PG Care Time/CCT Total # of Minutes Spent Total Time Spent with Patient: Total time spent is greater than 50% in coordination of care (as documented) at patient's floor/unit and/or counseling patient: Coding Level of Care Code 24596 Subseq Hosp Care Lvl 3 Diagnoses Loculated pneumothorax of lateral aspect of right lung J93.83 COPD with emphysema J43.9 Lung bullae J43.9
--- NOTE | 2020-05-16 13:22 | Hospitalist Progress Note ---
Date of Service May 16, 2020 Assessment & Plan Admission and Anticipated Discharge Date Admission Date: May 15, 2020 Pt is a 40 y/o male with h/o recuurent spontaenous pneumothoraces who presented with chest pain, shortness of breath and cough. CXR showed right basilar pneumothorax. (1) Loculated pneumothorax of right lung: Patient currently on 6L O2 delivered through nasal cannula. Breathing improved as such Last CXR this morning, shows unchanged right basilar pneuomothorax Hospitalist team contacted Dr Liz [facility] about possible transfer to [facility]. Awaiting transfer possibly this PM (2) Lung bullae: Definitive treatment with thoracic surgery - Transfer to [facility] (3) COPD with emphysema: Severe emphysema noted on CT. Only taking Alvesco 1 puff twice daily prior to admission. Follow up with pulmonology as outpatient - previous alpha-1 antitrypsin testing performed at [facility] - 76 mg/dL (just below normal range. (4) History of migraine: Continue topiramate 25mg PO HS (5) Bipolar 2 disorder: Continue lithium 1200mg PO HS, level with AM labs. Trazodone 100mg PO HS FEN/GI - Regular diet DVT prophylaxis - SCD Code - Full code Dispo - awaiting transfer to [facility] Supervising Physician Co-Signing Physician Notes Attending attestation Pt seen and examined in concert with Dr. Natarajan and Std Dr. Ramirez. In agreement with the documented findings as noted in the documentation with any exceptions or additions as noted here. 40 y/o male h/o recurrent pneumothorax, COPD w/ emphysema presenting with right pneumothorax Still having considerable positional discomfort and shortness of breath, mostly while lying on the left side but tolerating RA well in general. Appetite is stable. On examination, S1/S2 nl RRR no MCG. Abd NT/ND BS+ve. Decreased breathsounds throughout the right side, predominantly the upper lobe, compared to the left. Pneumothorax, right, loculated - followed extensively by CT surgery @ [facility] for this. Pulmonlogy consultation agrees that transfer would be appropriate in this case. Accepting as noted and pending txf. Continue O2 per protocol. COPD with emphysema - continue umeclidinium/vilanterol and fluticasone as scheduled. Bipolar 2 - previous h/o sertraline use with 150mg qHS as well as risperidone 8mg qHS. No dose last night. Would resume qHS tonight or on transfer. Else see resident documentation as noted. Marisa Zuñiga is a 40 y/o male with a h/o recurrent spontaneous pneumothoraces, who presented with chest pain, shortness of breath and cough. He has had 4 pneumothoraces in the past 2 months. Today, he notes that his symptoms are improved. Pain meds bring his pain from 8 to 4. Cough is also improved, and he is breathing comfortably on 6L O2 delivered through nasal cannula. He does also state that he "feels like he's drowning" when he lays on his left side. Review of Systems Constitutional: No fevers, chills. Good appetite Eyes: no eye pain, no double vision Respiratory: cough improved, breathing comfortably on supplemental O2 Cardiovascular: Additional Comments: chest pain, no edema noted, no orthopnea Psychiatric: "depressed" Missed last night's dose of zoloft Physical Exam Constitutional: well developed, well nourished Eyes: + anicteric sclerae and EOM intact bilaterally Neck: normal visual inspection Respiratory: diminished breath sounds over right upper lobe. No wheezes or crackles noted Cardiovascular: Normal S1/S2. No murmurs, rubs, gallops Gastrointestinal (Abdomen): + bowel sounds. Non-tender, nondistended Psychiatric: A+Ox3, euthymic affect Results & Data Results & Data ([facility]) Vital Signs (Past 12 Hours) Vital Signs Temp Pulse Resp BP Pulse Ox 05/16/20 11:16 36.6 C 67 18 133/90 99 05/16/20 07:29 36.5 C 65 17 119/89 100 05/16/20 02:38 36.6 C 68 16 137/87 97
--- NOTE | 2020-05-16 13:45 | Discharge Summary ---
Date of Service May 16, 2020 Admission HPI Per Admitting Provider Yogesh Toussaint is a 40 year old male with recurrent spontaneous pneumothoraces who presents to the ER from [facility] due to sudden onset right sided chest pain and progressive worsening shortness of breath that started 2 days ago while coughing. He reports initially hearing a pop in his right lung with a sharp pleuritic chest pain. Severity 9/10 at worst, currently 6/10. Denies any trauma. Patient felt no surgical emphysema. No breath sounds could be heard on the right side by the [facility] provider today but was sent to the ER for further evaluation to assess for pneumothorax. The patient denies any further coughing, hemoptysis, fever, chills, nausea, vomiting, palpitations, diaphoresis, nasal congestion, headache, dizziness, weakness or fatigue. Significant history of recurrent spontaneous pneumothoraces (x3 in the last 2 months), x1 on left 20 years previously: March 15 - large right-sided pneumothorax after straining bowel movement causing collapsed right lung with chest tube placed in ER. [facility] Chest tube removed 03/[address] surgery follow up. April 05 - right sided pneumothorax associated with coughing episode with chest tube placed. [facility], 04/[facility] -right thoracotomy bullaectomy and pleurodesis. Right basal segment bronchial lavage showed numerous pulmonary macrophages, respiratory epithelium, mucoid exudate and many acute inflammatory cells. No evidence malignancy. 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 Todays episode as above He reports never being seen by church official outside of a hospital setting however initially [facility] did note "complete pulmonary workup". Most recently [facility] to April 16, 2020 for similar presentation. On that admission he underwent paracentesis. Chest tube was removed on 04/14 and follow-up chest x-ray the following day showed no pneumothorax at that time. The patient is a former smoker. Quit February 2019. 1-2 packs/day for 20 years. ie. 30 pack-year history. Since July he has been smoking e-cigarettes in the [facility] but quit after his first pneumothorax at the beginning of March. In the ER chest x-ray showed right basilar pneumothorax. ER physician Dr. Bledsoe discussed with [facility] (Dr Liz) who would have excepted [facility] however there are no beds currently available. Requested CT without contrast and he will review images tomorrow for ongoing advice. Case discussed with Dr. Mcnamara by myself and Dr Bledsoe and after repeat CXR showed significant improvement on 2L O2 only the patient will be admitted here to PCU. No need for emergent chest tube at the current time as he appears to be improving. Admission Exam Per Admitting Provider Constitutional: well developed and well nourished; no acute distress Eyes: + anicteric sclerae; normal pupil size ENMT: external ear and nose normal, oropharynx normal Respiratory: normal respiratory effort and able to speak in complete sentences; no respiratory distress, no labored breathing, no retractions, does not use accessory muscles and no cough Auscultation: + breath sounds absent (Right lateral wall) and + crackles (few around absent area); no wheezes Cardiovascular: Rate/Rhythm: regular rate and regular rhythm Heart Sounds: no murmur Chest (Breasts): Chest: normal inspection of chest (Scarring well healed from prior chest tubes and bullaectomy, no surgical em) Gastrointestinal (Abdomen): normal bowel sounds, soft, nontender, no hepatosplenomegaly Musculoskeletal: no cyanosis or clubbing, extremities motor strength 5/5 Skin: no rashes, warm and dry Neurologic: moves all extremities and awake; not confused Psychiatric: A+Ox3, euthymic affect Genitourinary: no CVA tenderness Principal Diagnosis Right Pneumothorax Discharge Exam Constitutional WD/WN, vitals as above shackled to bed Neck trachea midline, no thyromegaly Respiratory normal respiratory effort; no respiratory distress, no labored breathing and does not use accessory muscles Auscultation: + diminished lung sounds (throughout right lung matos); no rales, no rhonchi and no wheezes Cardiovascular RRR, no murmur, no edema Skin no rashes, warm and dry Discharge Data Allergies Allergy/AdvReac Type Severity Reaction Status Date / Time citalopram [From Celexa] AdvReac Unknown Unknown Unverified 05/15/20 12:18 tramadol AdvReac Unknown Unknown Unverified 04/05/20 05:13 Consultations 05/15/20 14:43 ED Decision to Admit Stat 05/15/20 16:10 Consult Pulmonology Stat Ordered Studies 05/15/20 13:37 CT chest wo con Stat Hospital Course (1) Loculated pneumothorax of lateral aspect of right lung: (1) Loculated pneumothorax of lateral aspect of right lung: - Several spontaneous PTX in right lung over the last two months. - Current CT Chest shows right-sided hydropneumothorax with small amount of layering fluid and large amount of air within the pleural space and severe emphysema with marked upper lung zone predominant bullous changes. - Serial CXR shows stable size in moderate right PTX - At this point ddx includes bronchiolitis obliterans 2/2 vaping, less likely alpha-1 antitrypsin deficiency, as previous alpha-1 antitrypsin testing performed at [facility] - 76 mg/dL (just below normal range) - Patient currently hemodynamically stable and satting well on 6L O2 via NC - ABG with no CO2 retention - Associated pleuritic right-sided chest pain controlled with PRN Fentanyl 50 mcg IV Q2H - Patient previously underwent chest tube placements and bul[facility] with [facility] - [facility]) and will be admitted to Dr. Liz's CT surgery service for likely chest tube placement (2) Lung bullae: - Definitive treatment with thoracic surgery. Transfer as above. (3) COPD with emphysema: - Severe emphysema noted on CT. - Only taking Alvesco 1 puff twice daily prior to admission. - Will need follow up with pulmonology as outpatient (4) History of migraine: - Continue topiramate 25mg PO HS (5) Bipolar 2 disorder: - Continue lithium 1200mg PO QHS - Continue Trazodone 100mg PO QHS - Continue Risperdal 4mg PO QHS - Continue Sertraline 150 mg PO QHS (2) Lung bullae: (3) COPD with emphysema: (4) Bipolar 2 disorder: (5) HCV (hepatitis C virus): (6) History of migraine: (7) Gastroesophageal reflux: Total Time Total Time Spent Total Time Spent (In Minutes): 60 minutes Total Time Includes: Examination of the Patient, Discharge Planning, Medication Reconciliation and Communication With Other Providers Discharge Plan Discharge Items Patient Disposition: Transfer Acute Care Hospital Reason For Visit: RIGHT HYDROPNEUMOTHORAX Discharge Diagnosis: Spontaneous Right Pneumothorax Activity: Per Instructions section Non-emergency contact: Primary Care Provider, Surgeon and Fill Manager Call non-emergency contact if: you have any medication questions, your symptoms worsen, your pain is not controlled and you have a fever Follow-up/Referrals: Enma SALGUERO [Primary Care Provider] - Diet: Regular Addtl Attending Provider Instructions: (1) Loculated pneumothorax of lateral aspect of right lung: - Several spontaneous PTX in right lung over the last two months. - Current CT Chest shows right-sided hydropneumothorax with small amount of layering fluid and large amount of air within the pleural space and severe emphysema with marked upper lung zone predominant bullous changes. - Serial CXR shows stable size in moderate right PTX - At this point ddx includes bronchiolitis obliterans 2/2 vaping, less likely alpha-1 antitrypsin deficiency, as previous alpha-1 antitrypsin testing performed at [facility] - 76 mg/dL (just below normal range) - Patient currently hemodynamically stable and satting well on 6L O2 via NC - ABG with no CO2 retention - Patient previously underwent chest tube placements and bul[facility] - [facility] and will be admitted to Dr. Liz's CT surgery service for likely chest tube placement (2) Lung bullae: - Definitive treatment with thoracic surgery. Transfer as above. (3) COPD with emphysema: - Severe emphysema noted on CT. - Only taking Alvesco 1 puff twice daily prior to admission. - Will need follow up with pulmonology as outpatient (4) History of migraine: - Continue topiramate 25mg PO HS (5) Bipolar 2 disorder: - Continue lithium 1200mg PO QHS - Continue Trazodone 100mg PO QHS - Continue Risperdal 4mg PO QHS - Continue Sertraline 150 mg PO QHS Pending Studies at Discharge: No Stand-Alone Forms: [facility] Patient informed of condition?: Yes DNR: No Discharge Level of Care: Other Communicable Disease: No Discharge Prognosis: Stable Lines: None Urinary Catheter: No Medications and DC Order Prescriptions: New sertraline 50 mg tablet 150 mg PO .QHS Qty: 90 RF: 0 risperidone 4 mg tablet 4 mg PO HS Qty: 30 RF: 0 Continued lithium carbonate 300 mg Tablet Extended Release 1,200 mg PO HS RF: 0 topiramate 25 mg Tablet 25 mg PO HS RF: 0 trazodone 100 mg Tablet 100 mg PO HS RF: 0 finasteride 5 mg Tablet 5 mg PO QAM RF: 0 levalbuterol tartrate [Xopenex HFA] 45 mcg/actuation Hfa Aerosol Inhaler 2 inh INHALATION QID PRN (Reason: Shortness Of Breath) RF: 0 Alvesco 80 mcg/actuation Hfa Aerosol Inhaler 1 puff INHALATION BID RF: 0 Admission Data Admit Date/Time: 05/15/20 16:22 Attending Provider: John Scherer Admit Provider: Maikol Fowler Primary Care Provider: Enma SALGUERO Other Providers: Maikol Fowler ; Ventura Mcnamara Resident Activity Tracking Resident Involvement: Resident Care Provided Care Provided: Adult Hospital Medicine
[2020-05-16] MEDS ORDERED: ACETAMINOPHEN 325 MG TAB PO PRN (17:13)
[2020-05-16] MEDS: oxyCODONE HCL IR 5 MG TAB (IMMEDIATE RELEASE) PO PRN ×2 (18:39→23:03)
[2020-05-16] MEDS: LITHIUM CARBONATE SLOW REL 300 MG TAB PO SCH (20:27)
[2020-05-16] MEDS: traZODone HCL 100 MG TAB PO SCH (20:27)
[2020-05-16] MEDS: TOPIRAMATE 25 MG TAB PO SCH (20:27)
[2020-05-16] MEDS: risperiDONE 2 MG TABLET PO SCH (20:53)
[2020-05-16] MEDS: SERTRALINE HCL 50 MG TABLET PO SCH (20:53)
[2020-05-17] MEDS: fentaNYL citrate 100 MCG/2 ML VIAL IV PRN ×5 (03:07→21:09)
--- NOTE | 2020-05-17 07:06 | XRay Report ---
XR chest 1V portable HISTORY: 40 years-old Male R PTX follow-up study in a patient with right-sided pneumothorax COMPARISON: Chest radiograph 05/16/2020 at 6:42 AM TECHNIQUE: Portable AP view of the chest FINDINGS: Cardiomediastinal and hilar silhouettes are unchanged. Right basilar pneumothorax. Stable to slightly increased in size from comparison, pleural separation at the lung bases measuring up to 3.6 cm, prev iously 3.1 cm. Partial collapse of the medial right lung base. Severe emphysema with chronic fibrotic changes. Postoperative changes of the lung apices. Bones appear grossly intact. IMPRESSION: Stable to slightly increased size of the right basilar predominant pneumothorax. ACT 112: Negative or not required by law. The above report was generated using voice recognition software. It may contain grammatical, syntax o r spelling errors. Electronically signed by: Shadi Espinosa M.D. 05/17/2020 7:05 AM
[2020-05-17 07:08] LABS: Hematocrit (blood only) 38.9 % (42-52); Hemoglobin 12.7 g/dL (14.0-18.0); Mean Corpuscular Hgb Conc 32.6 g/dL (32-36); Mean Corpuscular Volume 94.9 fL (80-100); White Blood Count 6.35 K/uL (4.8-10.8)
[2020-05-17 07:09] LABS: Basophils # (auto) 0.01 K/uL (0-0.2); Basophils % (auto) 0.2 %; Eosinophils # (auto) 0.26 K/uL (0-0.5); Eosinophils % (auto) 4.1 %; Immature Granulocytes # (auto) 0.01 K/uL (0.00-0.02); Immature Granulocytes % (auto) 0.2 %; Lymphocytes % (auto) 26.8 %; Mean Platelet Volume 10.8 fL (7.4-10.4); Monocytes # (auto) 0.71 K/uL (0.11-0.59); Monocytes % (auto) 11.2 %; Neutrophils # (auto) 3.66 K/uL (1.4-6.5); Neutrophils % (auto) 57.5 %; Platelet Count 239 K/uL (130-400); RDW Coefficient of Variation 13.1 % (11.5-14.5); RDW Standard Deviation 45.8 fL (36.4-46.3)
[2020-05-17 07:44] LABS: BUN Creatinine Ratio 11.9 (10-20); Calcium 9.3 mg/dl (8.5-10.1); Creatinine Clr Calc Pharmacy 105.9 ml/min; Est GFR (Non-African American) 98.3; Potassium 3.6 mmol/L (3.5-5.1)
[2020-05-17] MEDS: FINASTERIDE 5 MG TAB PO SCH (08:37)
[2020-05-17] MEDS: BENZONATATE 100 MG CAPSULE PO SCH ×3 (08:37→21:15)
[2020-05-17] MEDS: FLUTICASONE FUROATE 100MCG 14 PUFFS/INHALER INH SCH (08:37)
[2020-05-17] MEDS: UMECLIDINIUM/VILANTEROL 62.5/25MCG 7 PUFFS/INHALER INH SCH (08:37)
[2020-05-17] MEDS: oxyCODONE HCL IR 5 MG TAB (IMMEDIATE RELEASE) PO PRN ×3 (09:32→19:23)
[2020-05-17] MEDS ORDERED: POLYETHYLENE (MIRALAX) 17 GM PACK PO STA (09:36)
--- NOTE | 2020-05-17 13:18 | Pulmonology Progress Note ---
Date of Service May 17, 2020 Assessment & Plan (1) Loculated pneumothorax of lateral aspect of right lung: CT chest 05/15/2020 personally reviewed: Severe's centrilobular and paraseptal em physema, bullous disease appreciated bilaterally, multiple surgical shwetha appreciated in apices of bilateral lungs more on the right side. Right lower loculated hydro-pneumothorax appreciated with minimal mediastinal shift. No mediastinal lymphadenopathy. Patient had a chest x-ray done an hour after the CT chest. And there is significant decrease in size of the right lower pneumothorax. Patient is only on nasal cannula currently. --Loculated right-sided hydropneumothorax Secondary because of underlying severe bullous disease as well as centrilobular and paraseptal emphysema Patient has had previous bullectomy in the past evident on the CAT scan Patient will definitely need CT surgery. [facility] had been contacted by the ED who apparently did previous pleurodesis. Patient seem to have partial pleurodesis of the right lung leading to loculated pneumothorax of the lower aspect. Likelihood of totally collapsing of the right lung would be unlikely. Recommendation is to have the patient 100% nonrebreather. But patient is not able to tolerate it. Continue with facemask oxygen up to 15 L. Patient does have severe COPD and chronic hypercapnia will be kept in mind while using the nonrebreather. --Severe COPD with emphysema Continue with Anoro and Arnuity. Trelegy inhaler as an outpatient. Alpha-1 antitrypsin deficiency if never done in the past should be thought of given the patient is only 40 years old Plan: Chest x-ray from today shows increase in size of the right lower lobe loculated pneumo from 3.1 to 3.6 cm. There is no significant change in patient's symptoms. Denies any significant chest tightness or chest pain compared to the last 2 days. I did give the patient option of putting a chest tube in and see if it resolves. Patient is awaiting a bed at [facility] where he had valve surgery done. He wants to wait and see if he is able to be transferred there before any intervention. I will repeat a chest x-ray later today to see if there is any worsening. If there is any worsening in the pneumothorax and I will put a chest tube in. Plan was discussed with nurse. Please note the above document was generated using voice recognition software. It may contain grammatical, syntax or spelling errors.Any formal questions or concerns about the content, text or information contained within the body of this dictation should be directly addressed to the provider for clarification. (2) COPD with emphysema: (3) Lung bullae: Admission and Anticipated Discharge Date Admission Date: May 15, 2020 Subjective Patient seen and examined at bedside. No adverse events overnight. Still complaining of right-sided chest pain. No change in the intensity of the pain. None complaining of any shortness of breath. Denies any headache, no dizziness, no nausea or vomiting. No coughing. Guards were present in the room during the time of interrogation. Review of Systems Review of Systems: All systems reviewed & are unremarkable except as noted in Subjective Physical Exam Physical Exam: Constitutional: No acute distress HEENT: EOMI, PERRLA Respiratory system: Decreased air entry bilaterally, no wheeze, no rhonchi, + crackles left lower lobe, surgical scar appreciated on the lateral aspect of the right chest CVS: S1-S2 positive, no murmurs or gallops Abdomen: Soft, nontender, nondistended, positive bowel sounds x4 Extremities: +2 pulses bilaterally radialis/ dorsalis pedis, no cyanosis, no edema Neuro: Awake alert oriented x3 Psych: Normal mood and affect G/U: No [place] Skin: no rashes, warm and dry Lymphatic: no cervical or axillary lymphadenopathy Results & Data Results & Data ([facility]) Vital Signs (Past 12 Hours) Vital Signs Temp Pulse Resp BP BP Pulse Ox 05/17/20 11:18 36.9 C 71 19 127/93 97 05/17/20 07:23 36.6 C 66 18 115/82 99 05/17/20 03:20 36.3 C L 67 18 134/90 97 05/17/20 06:46 05/17/20 06:46 PG Care Time/CCT Total # of Minutes Spent Total Time Spent with Patient: Total time spent is greater than 50% in coordination of care (as documented) at patient's floor/unit and/or counseling patient: Coding Level of Care Code 12124 Subseq Hosp Care Lvl 3 Diagnoses Loculated pneumothorax of lateral aspect of right lung J93.83 COPD with emphysema J43.9 Lung bullae J43.9
--- NOTE | 2020-05-17 15:10 | Hospitalist Progress Note ---
Date of Service May 17, 2020 Assessment & Plan (1) Loculated pneumothorax of lateral aspect of right lung: (1) Loculated pneumothorax of lateral aspect of right lung: - Several spontaneous PTX in right lung over the last two months. - Current CT Chest shows right-sided hydropneumothorax with small amount of layering fluid and large amount of air within the pleural space and severe emphysema with marked upper lung zone predominant bullous changes. - Serial CXR shows stable size in moderate right PTX - At this point ddx includes bronchiolitis obliterans 2/2 vaping, less likely alpha-1 antitrypsin deficiency, as previous alpha-1 antitrypsin testing performed at [place] - 76 mg/dL (just below normal range) - Patient currently hemodynamically stable and satting well on 12L/min via Oxymask - Associated pleuritic right-sided chest pain controlled with PRN Oxycodone 5 mg PO Q4H and Fentanyl 50 mcg IV Q4H for breakthrough pain - Patient previously underwent chest tube placements and bullectomy with Dr. Liz in [facility] - Patient is accepted to [facility] (pending available bed) and will be admitted to Dr. Liz's CT surgery service for likely chest tube placement - update as of 05/17: spoke with AOD at [facility] - hopes to have bed ready by later this evening vs tomorrow - Dr. Mcnamara spoke to the patient and will place a CT if patient decompensates before transfer (2) Lung bullae: - Definitive treatment with thoracic surgery. Transfer as above. (3) COPD with emphysema: - Severe emphysema noted on CT. - Only taking Alvesco 1 puff twice daily prior to admission. - continue Umeclidinium vilanterol inhaler daily and flonase daily - PRN duo nebs - Will need follow up with pulmonology as outpatient (4) History of migraine: - Continue topiramate 25mg PO HS (5) Bipolar 2 disorder: - Continue lithium 1200mg PO QHS - Continue Trazodone 100mg PO QHS - Continue Risperdal 4mg PO QHS - Continue Sertraline 150 mg PO QHS FEN/GI: Regular DVT Prophylaxis: SCDs Code Status: Full Code Disposition: PCU with tele (2) Lung bullae: (3) COPD with emphysema: (4) Bipolar 2 disorder: (5) HCV (hepatitis C virus): (6) History of migraine: (7) Gastroesophageal reflux: Admission and Anticipated Discharge Date Admission Date: May 15, 2020 Supervising Physician Co-Signing Physician Notes Attending attestation Pt seen and examined in concert with Dr. Natarajan. In agreement with the documented findings as noted in the documentation with any exceptions or additions as noted here. 40 y/o male h/o recurrent pneumothorax, COPD w/ emphysema presenting with right pneumothorax Stable shortness of breath tolerating NC well with pain well controlled with present regimen. Was initially hesitant re: chest tube 2/2 previous poor outcome at this facility and desire to move to definitive therapy. Awaiting bed @ [facility]. Having mild reflux and epigastric discomfort, normally is taking PPI with ameli oration but has not been on here. On examination, S1/S2 nl RRR no MCG. Abd NT/ND BS+ve. Decreased breathsounds throughout the right side, predominantly the upper lobe, compared to the left. Pneumothorax, right, loculated - followed extensively by CT surgery @ [facility] [place] for this. Pulmonlogy consultation appreciated. Stable/slightly worsened on CXR today. Counseled re: need for temporizing intervention prior to transfer per Dr. Mcnamara's recommendation, encourage to revisit. Continue O2 per protocol. COPD with emphysema - continue umeclidinium/vilanterol and fluticasone as scheduled. GERD - restart PPI therapy Bipolar 2 - previous h/o sertraline use with 150mg qHS as well as risperidone 8mg qHS. No dose last night. Would resume qHS tonight or on transfer. Else see resident documentation as noted. Subjective NAEO. Patient reports stable symptoms - still has right-sided pleuritic chest pain. Pain is controlled with Oxycodone, and Fentanyl for breakthrough pain. Denies fever/chills, palpitations, SOB, N/V. Review of Systems Review of Systems: pertinent positives and negatives in HPI Physical Exam Constitutional: WD/WN, vitals as above Neck: trachea midline, no thyromegaly Respiratory: normal respiratory effort; no respiratory distress, no labored breathing and does not use accessory muscles Auscultation: + diminished lung sounds (throughout right lung matos); no rales, no rhonchi and no wheezes Cardiovascular: RRR, no murmur, no edema Skin: no rashes, warm and dry Results & Data Results & Data ([facility]) Vital Signs (Past 12 Hours) Vital Signs Temp Pulse Resp BP BP Pulse Ox 05/17/20 11:18 36.9 C 71 19 127/93 97 05/17/20 07:23 36.6 C 66 18 115/82 99 05/17/20 03:20 36.3 C L 67 18 134/90 97 Resident Activity Tracking Resident Involvement: Resident Care Provided Care Provided: Adult Hospital Medicine
[2020-05-17] MEDS ORDERED: PANTOprazole 40 MG TAB PO SCH (17:00)
--- NOTE | 2020-05-17 17:10 | XRay Report ---
SINGLE VIEW CHEST CLINICAL HISTORY: Pneumothorax. FINDINGS: 2 AP, portable, upright chest radiographs are compared to study dated 05/17/2020 and correla valerie with chest CT dated 05/15/2020. The examination is degraded by portable technique and patient rota tion. The trachea is midline. The cardiomediastinal silhouette is unremarkable. Advanced emphysematou s change and chronic interstitial thickening is similar to previous. Postoperative change is noted in the right lung. Foci of scarring/atelectasis are seen throughout both lungs. No airspace consolidati on is seen typical for pneumonia and there is no large pleural effusion. A moderate to large right ba silar pneumothorax is unchanged. No left-sided pneumothorax is seen. The bony thorax is grossly intac t. IMPRESSION: 1. A moderate to large right sided pneumothorax has not significantly changed from today's earlier ex amination. 2. Advanced emphysema with postoperative change in the right lung. 3. No airspace consolidation is identified typical for pneumonia. ACT 112: Negative or not required by law. Electronically signed by: Yogesh Solis M.D. 05/17/2020 5:08 PM
[2020-05-17] MEDS ORDERED: POLYETHYLENE (MIRALAX) 17 GM PACK PO SCH (21:00)
[2020-05-17] MEDS: LITHIUM CARBONATE SLOW REL 300 MG TAB PO SCH (21:14)
[2020-05-17] MEDS: risperiDONE 2 MG TABLET PO SCH (21:15)
[2020-05-17] MEDS: traZODone HCL 100 MG TAB PO SCH (21:15)
[2020-05-17] MEDS: TOPIRAMATE 25 MG TAB PO SCH (21:15)
[2020-05-17] MEDS: SERTRALINE HCL 50 MG TABLET PO SCH (21:15)
[2020-05-18] MEDS: oxyCODONE HCL IR 5 MG TAB (IMMEDIATE RELEASE) PO PRN (00:58)
[2020-05-18] MEDS: fentaNYL citrate 100 MCG/2 ML VIAL IV PRN (03:02)
--- NOTE | 2020-05-18 11:30 | Discharge Summary ---
Date of Service May 18, 2020 Admission HPI Per Admitting Provider History of Present Illness Primary Care Provider: SCI Enma Yogesh Toussaint is a 40 year old male with recurrent spontaneous pneumothoraces who presents to the ER from [facility] due to sudden onset right sided chest pain and progressive worsening shortness of breath that started 2 days ago while coughing. He reports initially hearing a pop in his right lung with a sharp pleuritic chest pain. Severity 9/10 at worst, currently 6/10. Denies any trauma. Patient felt no surgical emphysema. No breath sounds could be heard on the right side by the retirement healthcare provider today but was sent to the ER for further evaluation to assess for pneumothorax. The patient denies any further coughing, hemoptysis, fever, chills, nausea, vomiting, palpitations, diaphoresis, nasal congestion, headache, dizziness, weakness or fatigue. Significant history of recurrent spontaneous pneumothoraces (x3 in the last 2 months), x1 on left 20 years previously: March 15 - large right-sided pneumothorax after straining bowel movement causing collapsed right lung with chest tube placed in ER. Transferred to [facility] 03/15-03/20. Chest tube removed 03/[address] surgery follow up. April 05 - right sided pneumothorax associated with coughing episode with chest tube placed. [facility] -04/16, 04/11 -right thoracotomy bullaectomy and pleurodesis. Right basal segment bronchial lavage showed numerous pulmonary macrophages, respiratory epithelium, mucoid exudate and many acute inflammatory cells. No evidence malignancy. 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 Todays episode as above He reports never being seen by director of personnel outside of a hospital setting however initially [facility] visit did note "complete pulmonary workup". Most recently he was admitted at [facility] from April 05 to April 16, 2020 for similar presentation. On that admission he underwent paracentesis. Chest tube was removed on 04/14 and follow-up chest x-ray the following day showed no pneumothorax at that time. The patient is a former smoker. Quit February 2019. 1-2 packs/day for 20 years. ie. 30 pack-year history. Since July he has been smoking e-cigarettes in the retirement but quit after his first pneumothorax at the beginning of March. In the ER chest x-ray showed right basilar pneumothorax. ER physician Dr. Bledsoe discussed with his thoracic surgeon at [facility] (Dr Liz) who would have excepted him at [facility] however there are no beds currently available. Requested CT without contrast and he will review images tomorrow for ongoing advice. Case discussed with Dr. Mcnamara by myself and Dr Bledsoe and after repeat CXR showed significant improvement on 2L O2 only the patient will be admitted here to PCU. No need for emergent chest tube at the current time as he appears to be improving. Admission Exam Per Admitting Provider Constitutional: well developed and well nourished; no acute distress Eyes: + anicteric sclerae; normal pupil size ENMT: external ear and nose normal, oropharynx normal Respiratory: normal respiratory effort and able to speak in complete sentences; no respiratory distress, no labored breathing, no retractions, does not use accessory muscles and no cough Auscultation: + breath sounds absent (Right lateral wall) and + crackles (few around absent area); no wheezes Cardiovascular: Rate/Rhythm: regular rate and regular rhythm Heart Sounds: no murmur Chest (Breasts): Chest: normal inspection of chest (Scarring well healed from prior chest tubes and bullaectomy, no surgical em) Gastrointestinal (Abdomen): normal bowel sounds, soft, nontender, no hepatosplenomegaly Musculoskeletal: no cyanosis or clubbing, extremities motor strength 5/5 Skin: no rashes, warm and dry Neurologic: moves all extremities and awake; not confused Psychiatric: A+Ox3, euthymic affect Genitourinary: no CVA tenderness Principal Diagnosis Right Pneumothorax Discharge Exam Constitutional WD/WN, vitals as above Neck trachea midline, no thyromegaly Respiratory normal respiratory effort; no respiratory distress, no labored breathing and does not use accessory muscles Auscultation: + diminished lung sounds (throughout right lung matos); no rales, no rhonchi and no wheezes Cardiovascular RRR, no murmur, no edema Skin no rashes, warm and dry Discharge Data Allergies Allergy/AdvReac Type Severity Reaction Status Date / Time citalopram [From Celexa] AdvReac Unknown Unknown Unverified 05/15/20 12:18 tramadol AdvReac Unknown Unknown Unverified 04/05/20 05:13 Consultations 05/15/20 14:43 ED Decision to Admit Stat 05/15/20 16:10 Consult Pulmonology Stat 05/16/20 14:50 Burn CD for patient Stat Ordered Studies 05/15/20 13:37 CT chest wo con Stat 05/17/20 11:37 US point of care ultrasound Urgent Hospital Course (1) Loculated pneumothorax of lateral aspect of right lung: (1) Loculated pneumothorax of lateral aspect of right lung: - Several spontaneous PTX in right lung over the last two months. - Current CT Chest shows right-sided hydropneumothorax with small amount of layering fluid and large amount of air within the pleural space and severe emphysema with marked upper lung zone predominant bullous changes. - Serial CXR shows stable size in moderate right PTX - At this point ddx includes bronchiolitis obliterans 2/2 vaping, less likely alpha-1 antitrypsin deficiency, as previous alpha-1 antitrypsin testing performed at [place] - 76 mg/dL (just below normal range) - Patient currently hemodynamically stable and satting well on 12L/min via Oxymask - Associated pleuritic right-sided chest pain controlled with PRN Oxycodone 5 mg PO Q4H and Fentanyl 50 mcg IV Q4H for breakthrough pain - Patient previously underwent chest tube placements and bullectomy with Dr. Liz in [facility] - Patient is accepted to [facility] (pending available bed) and will be admitted to Dr. Liz's CT surgery service for further eval/management (2) Lung bullae: - Definitive treatment with thoracic surgery. Transfer as above. (3) COPD with emphysema: - Severe emphysema noted on CT. - Only taking Alvesco 1 puff twice daily prior to admission. - continue Umeclidinium vilanterol inhaler daily and flonase daily - PRN duo nebs - Will need follow up with pulmonology as outpatient (4) History of migraine: - Continue topiramate 25mg PO HS (5) Bipolar 2 disorder: - Continue lithium 1200mg PO QHS - Continue Trazodone 100mg PO QHS - Continue Risperdal 4mg PO QHS - Continue Sertraline 150 mg PO QHS Total Time Total Time Spent Total Time Spent (In Minutes): 60 minutes Total Time Includes: Examination of the Patient, Discharge Planning, Medication Reconciliation and Communication With Other Providers Discharge Plan Discharge Items Patient Disposition: Transfer Acute Care Hospital Reason For Visit: RIGHT HYDROPNEUMOTHORAX Discharge Diagnosis: Spontaneous Right Pneumothorax Activity: Per Instructions section Non-emergency contact: Primary Care Provider, Surgeon and Ophthalmology Assistant Call non-emergency contact if: you have any medication questions, your symptoms worsen, your pain is not controlled and you have a fever Follow-up/Referrals: Enma SALGUERO [Primary Care Provider] - Diet: Regular Addtl Attending Provider Instructions: (1) Loculated pneumothorax of lateral aspect of right lung: - Several spontaneous PTX in right lung over the last two months. - Current CT Chest shows right-sided hydropneumothorax with small amount of layering fluid and large amount of air within the pleural space and severe emphysema with marked upper lung zone predominant bullous changes. - Serial CXR shows stable size in moderate right PTX - At this point ddx includes bronchiolitis obliterans 2/2 vaping, less likely alpha-1 antitrypsin deficiency, as previous alpha-1 antitrypsin testing performed at [place] - 76 mg/dL (just below normal range) - Patient currently hemodynamically stable and satting well on 6L O2 via NC - ABG with no CO2 retention - Patient previously underwent chest tube placements and bullectomy with Dr. Liz in [facility] - Patient is accepted to [facility] (pending available bed) and will be admitted to Dr. Liz's CT surgery service for likely chest tube placement (2) Lung bullae: - Definitive treatment with thoracic surgery. Transfer as above. (3) COPD with emphysema: - Severe emphysema noted on CT. - Only taking Alvesco 1 puff twice daily prior to admission. - Will need follow up with pulmonology as outpatient (4) History of migraine: - Continue topiramate 25mg PO HS (5) Bipolar 2 disorder: - Continue lithium 1200mg PO QHS - Continue Trazodone 100mg PO QHS - Continue Risperdal 4mg PO QHS - Continue Sertraline 150 mg PO QHS Pending Studies at Discharge: No Stand-Alone Forms: [employer] Skilled Items Patient informed of condition?: Yes DNR: No Discharge Level of Care: Other Communicable Disease: No Discharge Prognosis: Stable Lines: None Urinary Catheter: No Medications and DC Order Prescriptions: New sertraline 50 mg tablet 150 mg PO .QHS Qty: 90 RF: 0 risperidone 4 mg tablet 4 mg PO HS Qty: 30 RF: 0 Continued lithium carbonate 300 mg Tablet Extended Release 1,200 mg PO HS RF: 0 topiramate 25 mg Tablet 25 mg PO HS RF: 0 trazodone 100 mg Tablet 100 mg PO HS RF: 0 finasteride 5 mg Tablet 5 mg PO QAM RF: 0 levalbuterol tartrate [Xopenex HFA] 45 mcg/actuation Hfa Aerosol Inhaler 2 inh INHALATION QID PRN (Reason: Shortness Of Breath) RF: 0 Alvesco 80 mcg/actuation Hfa Aerosol Inhaler 1 puff INHALATION BID RF: 0 Discharge Orders: Discharge Order (Routine); Ordered 05/18/20 Ordered By: Trung Barone Admission Data Admit Date/Time: 05/15/20 16:22 Attending Provider: John Scherer Admit Provider: Maikol Fowler Primary Care Provider: Enma SALGUERO Other Providers: Maikol Fowler ; Ventura Mcnamara Other Interventions: Discharge Summary Assessment (RN) Last Done: 05/18/20 05:28 Supervising Physician Co-Signing Physician Notes Attending attestation Pt seen and examined in concert with Dr. Natarajan. In agreement with the documented findings as noted in the documentation with any exceptions or additions as noted here. 40 y/o male h/o recurrent pneumothorax, COPD w/ emphysema presenting with right pneumothorax Unchanged SOB on 2LNC with good pain control stable for transfer to [facility] for definitive management. Improved GI sx w/ restart of PPI On examination day of discharge, S1/S2 nl RRR no MCG. Abd NT/ND BS+ve. Decreased breath sounds throughout the right side, predominantly the upper lobe, compared to the left. Pneumothorax, right, loculated - transfer to [facility]. Pulmonology consultation in house. Stable/slightly worsened on CXR day of d/c. Continue O2 COPD with emphysema - continue umeclidinium/vilanterol and fluticasone as scheduled. GERD - restart PPI therapy Bipolar 2 - continue sertraline 150mg qHS and risperidone 8mg qHS. 15 minute spent on the discharge of this patient including documentation and coordination of discharge. Else see resident documentation as noted. Resident Activity Tracking Resident Involvement: Resident Care Provided Care Provided: Adult Hospital Medicine
== END 2020-05-18 04:15 | disposition short-term general hospital (02) | DRG 200 ==
LOC: ED 11:32 → 2S 16:22 → SUATTDRO 16:22 → 2S 19:25